=== PATIENT | female | born 1995 | race Two or more races ===

== ENCOUNTER 2020-06-02 00:02 | Emergency (ER) | payer MEDICAID ==
[~2020-06-02] VITALS: Ht 154.9 cm; Wt 54.5 kg
[2020-06-02 02:25] VITALS: BP 119/74
== END 2020-06-02 02:41 | disposition home or self-care (01) ==
LOC: EMS 00:02
DX: U07.1 COVID-19 (principal)
CPT/HCPCS: 87426